=== PATIENT | female | born 1985 | race Two or more races ===

== ENCOUNTER → 2018-07-24 | Emergency (ER) | payer SELFPAY ==
[~2018-07-24] VITALS: Ht 160 cm; Wt 53.5 kg
[~2018-07-24] MED LIST: IBUPROFEN600 MG ORAL; ROBAXIN500 MG PO
[2018-07-24 08:39] VITALS: BP 85/56
--- NOTE | 2018-07-24 09:10 | Emergency Room Report ---
History of Present Illness General Chief Complaint: Back Pain-No Injury Source: Patient Present Illness HPI Patient presents with back pain. This woke her up last night. She usually carries her kids. She denies any fevers, cough, sore throat. She felt like she might have been coming down with some viral illness a few days ago. This got better. Her last period was July 14. She recently had an annual with her doctor in everything was normal. She denies any dysuria. She does not take any medication. It's mainly inspirational and feels like an ache - rated 10/10. She denies history blood clot. There is no calf pain or edema. She does not smoke. Allergies: Coded Allergies: No Known Allergies (Unverified , 07/24/18) Patient History Past Medical History: see triage record Social History: Denies: smoking Social History Narrative with children Last Menstrual Period: 07/14/2018 Now: No Reviewed Nursing Documentation: PMH: Agreed; PSxH: Agreed Nursing Documentation-PMH Past Medical History: No Stated History Review of Systems All Other Systems: negative except mentioned in HPI Physical Exam Vital Signs Date Time Temp Pulse Resp B/P (MAP) Pulse Ox O2 Delivery O2 Flow Rate FiO2 07/24/18 08:20 98.2 100 12 85/56 97 07/24/18 08:39 Room Air Concern over HR, low BP. VS repeated. Sp02 EP Interpretation: reviewed, normal General Appearance: well appearing, no apparent distress, GCS 15 Head: normocephalic, atraumatic Eyes: bilateral eye normal inspection, bilateral eye PERRL ENT: hearing grossly normal, normal voice Neck: full range of motion, supple Respiratory: lungs clear, normal breath sounds, other - muscle tenderness R paraspinous lower chest recreates the pain Cardiovascular #1: regular rate, rhythm, no edema Cardiovascular #2: 2+ radial (R) Gastrointestinal: normal inspection, normal bowel sounds, non tender, soft, scaphoid Genitourinary: no CVA tenderness Musculoskeletal: digits/nails normal, gait/station normal, normal range of motion, no calf tenderness, other - see chest Neurologic: alert, oriented x3, normal gait, grossly normal Psychiatric: mood/affect normal - slightly anxious Skin: no rash Medical Decision Making Diagnostic Impression: Primary Impression: Back pain Qualified Codes: M54.6 - Pain in thoracic spine ER Course Patient presents with back pain that's pleuritic. Differential includes muscle strain, pneumonia, pneumothorax, pulmonary embolus amongst others. Based on her exam pulmonary embolus is less likely - however, need to repeat VS. She states that her blood pressure usually low. Evaluation will be with a urinalysis and a chest x-ray. Patient will be given Motrin. Repeat VS without tachycardia, hypotension and O2 sat 99%. CXR no pneumothorax or abnormalities. Improved with treatment. Patient stable for outpatient observation and treatment. UA checked after d/c and called to discuss with . States ibuprofen controlling pain. Laboratory Tests Test 07/24/18 09:07 Urine Color Pale yellow Urine Appearance Clear Urine pH 7 (4.5-8.0) Urine Specific [place] 1.005 (1.005-1.035) Urine Protein Negative (NEGATIVE) Urine Glucose (UA) Negative (NEGATIVE) Urine Ketones Negative (NEGATIVE) Urine Blood 2+ (NEGATIVE) H Urine Nitrite Negative (NEGATIVE) Urine Bilirubin Negative (NEGATIVE) Urine Urobilinogen Normal MG/DL (0.0-1.0) Urine Leukocyte Esterase 1+ (NEGATIVE) H Urine RBC 2-4 /HPF (0 - 2) H Urine WBC 0-2 /HPF (0 - 2) Urine Squamous Epithelial Cells Few /LPF (NONE/OCC) Urine Bacteria Few /HPF (NONE) Urine HCG, Qualitative Negative (NEGATIVE) Chest X-Ray Diagnostic Results Chest X-Ray Diagnostic Results : Chest X-Ray Ordered: Yes # of Views/Limited/Complete: 1 View Indication: Chest Pain Interpretation: no consolidation, no effusion, no pneumothorax Impression: No acute disease Electronically Signed by: Electronically signed by Aubrey Strange MD Last Vital Signs Date Time Temp Pulse Resp B/P (MAP) Pulse Ox O2 Delivery O2 Flow Rate FiO2 07/24/18 09:29 98.6 88 16 90/57 100 Room Air Status: improved Disposition: HOME, SELF-CARE Condition: Improved Scripts Methocarbamol* (ROBAXIN*) 500 Mg Tablet 500 MG PO TID, #10 TAB 0 Refills Prov: Aubrey Strange MD 07/24/18 Ibuprofen* (MOTRIN*) 600 Mg Tablet 600 MG ORAL Q6H PRN for For Pain, #20 TAB Prov: Aubrey Strange MD 07/24/18 Aubrey Strange MD Jul 24, 2018 09:10
[2018-07-24 09:16] VITALS: BP 90/57
[2018-07-24 09:29] VITALS: BP 90/57
[2018-07-24 09:40] LABS: APPEARANCE,URINE CLEAR; BILIRUBIN, URINE NEGATIVE (NEGATIVE); COLOR,URINE PALE YELLOW; GLUCOSE, URINE (UA) NEGATIVE (NEGATIVE); KETONES,URINE NEGATIVE (NEGATIVE); LEUKOCYTE ESTERASE ,URINE 1+ (NEGATIVE); NITRITE,URINE NEGATIVE (NEGATIVE); PH,URINE 7 (4.5-8.0); PROTEIN,URINE NEGATIVE (NEGATIVE); UROBILINOGEN,URINE NORMAL MG/DL (0.0-1.0)
--- NOTE | 2018-07-24 09:51 | Diagnostic Imaging Report ---
EXAM: XR Chest, 1 View CLINICAL HISTORY: CP TECHNIQUE: Frontal view of the chest. COMPARISON: No relevant prior studies available. FINDINGS: Lungs: No consolidation. Pleural space: Unremarkable. No pneumothorax. Heart: Unremarkable. No cardiomegaly. Mediastinum: Unremarkable. Bones/joints: No acute fracture. IMPRESSION: No acute cardiopulmonary disease.
== END | disposition home or self-care (01) ==
LOC: EMR 09:17
DX: M54.6 Pain in thoracic spine (principal); R07.9 Chest pain, unspecified; Z87.891 Personal history of nicotine dependence
CPT/HCPCS: 71045; 81003; 81025; 99283